=== PATIENT | male | born 1975 | race Two or more races ===

== ENCOUNTER 2024-02-24 09:30 | Emergency (ER) | payer OTHER ==
[~2024-02-24] VITALS: Ht 180.3 cm; Wt 120.2 kg
[2024-02-24] MEDS ORDERED: METFORMIN HCL850 M1 PO (10:04)
[2024-02-24] MEDS ORDERED: COZAAR100 MG PO (10:05)
[2024-02-24] MEDS ORDERED: DIPHENHYDRAMINE HCL 50 MG/ML VIAL 1ML IM STA (10:34)
[2024-02-24] MEDS ORDERED: DEXAMETHASONE SODIUM PHOSPHATE 4 MG/ML VIAL IM STA (10:35)
== END 2024-02-24 11:02 | disposition home or self-care (01) ==
LOC: ER 09:32
DX: T78.40XA Allergy, unspecified, initial encounter (principal); X58.XXXA Exposure to other specified factors, initial encounter; I10 Essential (primary) hypertension; E11.9 Type 2 diabetes mellitus without complications; Z79.84 Long term (current) use of oral hypoglycemic drugs